=== PATIENT | female | born 1965 | race Caucasian/White ===

== ENCOUNTER 2016-11-17 07:45 | Inpatient (IN) | payer BC ==
[2016-11-05 13:43] VITALS: BMI 25.0
--- NOTE | 2016-11-05 14:29 | PAT Medication Instructions ---
Service Date Nov 05, 2016. Current Home Medication List Ibuprofen Tab (Motrin), 400 MG PO Q4 PRN for Pain Sertraline (Zoloft), 50 MG PO QAM Tramadol (Ultram), 50 MG PO Q8H PRN for Pain Medication Instructions For Your Scheduled Surgery - Hold the following medications 7 days prior to surgery per surgeon's instructions: Ibuprofen Tab (Motrin), 400 MG PO Q4 PRN for Pain - Take the following medications the morning of surgery with a sip of water OTHERWISE NOTHING TO EAT OR DRINK AFTER MIDNIGHT: Tramadol (Ultram), 50 MG PO Q8H PRN for Pain (okay to take if needed up to 4 hours prior to surgery) Sertraline (Zoloft), 50 MG PO QAM - Take the following medications as scheduled the night before surgery: Tramadol (Ultram), 50 MG PO Q8H PRN for Pain Ibuprofen Tab (Motrin), 400 MG PO Q4 PRN for Pain If you have any questions please call us at [phone] (Hannah Bronson PA-C ) or [phone] or [phone]
--- NOTE | 2016-11-05 15:10 | DIAGNOSTIC IMAGING REPORT ---
CHEST 2 VIEWS ROUTINE CLINICAL HISTORY: Preoperative chest COMPARISON STUDY: 04/10/2015 FINDINGS: The cardiac and mediastinal contours are normal. There is no evidence of focal pulmonary consolidation. There is no evidence of failure. No pleural effusions are visualized.[ IMPRESSION: No active disease in the chest. Electronically signed by: Noah King M.D. 11/05/2016 3:08 PM
[2016-11-05 15:17] LABS: BASO % 0.8 %; BASO ABS # 0.05 K/uL (0-0.2); COMPLETE YES; EOS % 4.3 %; HEMATOCRIT 38.3 % (37-47); IG% 0.2 %; LYMPH % 30.9 %; LYMPH ABS # 1.85 K/uL (1.2-3.4); MEAN CELL VOLUME 90.1 fL (80-100); MEAN CORPUSCULAR HEMOGLOBIN 30.6 pg (25-34); MEAN CORPUSCULAR HGB CONC 33.9 g/dl (32-36); MEAN PLATELET VOLUME 10.2 fL (7.4-10.4); NEUT % 57.8 %; PLATELET COUNT 238 K/uL (130-400); RED BLOOD COUNT 4.25 M/uL (4.2-5.4); WHITE BLOOD COUNT 5.99 K/uL (4.8-10.8)
[2016-11-05 15:19] LABS: URINE APPEARANCE CLEAR (CLEAR); URINE BILIRUBIN NEG (NEG); URINE COLOR YELLOW; URINE NITRITE NEG (NEG); URINE SPECIFIC GRAVITY 1.023 (1.000-1.030); UROBILINOGEN NEG (NEG)
[2016-11-05 15:28] LABS: MANUAL MICROSCOPIC REQUIRED? NO; REVIEW REQ? NO
[2016-11-05 16:46] LABS: BUN/CREATININE RATIO 11.8 (10-20); CALCIUM 8.7 mg/dl (8.5-10.1); CREATININE 0.96 mg/dl (0.60-1.20); POTASSIUM 3.6 mmol/L (3.5-5.1)
--- NOTE | 2016-11-13 16:13 | HISTORY & PHYSICAL EXAMINATION ---
DATE OF ADMISSION: 11/17/2016 HISTORY OF PRESENT ILLNESS: The patient presents to our office with a complaint of left greater than right leg pain. It is limiting in nature. She is unable to ambulate a distance because of this. She denies bowel or bladder dysfunction. She has trialed NSAID as well as Medrol Dosepak without any long-lasting relief. PAST MEDICAL HISTORY: Significant for headaches. PAST SURGICAL HISTORY: Significant for hysterectomy. ALLERGIES: None listed. MEDICATIONS: Include Zoloft 50 mg a day and naproxen. SOCIAL HISTORY: She is single. Alcohol is beer occasionally. Tobacco is 8 cigarettes a day x20 years. FAMILY HISTORY: Significant for cancer, arthritis, diabetes, hypertension, high cholesterol, and thyroid disease. 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 REVIEW OF SYSTEMS: Significant for difficulty walking, muscle weakness. PHYSICAL EXAMINATION: VITAL SIGNS: 5 feet 2 inches, 139 pounds. HEENT: Speech appropriate. CARDIOPULMONARY: No gross abnormalities. ABDOMEN: Soft and nondistended. GENITOURINARY: Deferred. NEUROLOGIC: Cranial nerves II-XII grossly intact. MUSCULOSKELETAL: She ambulates with an independent gait. Strength is intact in bilateral lower extremities. Negative tension sign. Negative logrolling. ASSESSMENT: Severe neural foraminal stenosis L5-S1, annular tear L4-L5, spondylolisthesis with pars defect at L5-S1. PLAN: At this point in time, we have discussed surgical intervention which would require lumbar decompression and fusion of L4-L5 and L5-S1. Risks, benefits, pros, cons, and alternatives were outlined in detail. She wishes to proceed with the above-mentioned surgical intervention as soon as possible.
[2016-11-17] VITALS (8 sets, daily range): BP systolic 93–132; BP diastolic 55–75; PULSE 67–108; TEMP 36.4–36.9; O2SAT 91–96; Ht 157.5 cm; Wt 62.6 kg
[~2016-11-17] VITALS: Ht 157.5 cm; Wt 62.6 kg
--- NOTE | 2016-11-17 07:27 | History & Physical Bridge Note ---
H&P Re-Evaluation Bridge Note: I have examined the patient, reviewed the History & Physical and in the interval since the performance of the History & Physical I have noted the following changes of clinical significance: No changes noted
[~2016-11-17 07:45] MED LIST: CEFAZOLIN 1000MG/55 ML D5W IV SCH; IBUP-1449 PO; LACTATED RINGER'S 1000ML 1,000 ML IV SCH; SERT50TA PO; TRAM-10 PO
[2016-11-17] MEDS ORDERED: FENTANYL CITRATE INJ 50 MCG/1 ML 2 ML VIAL ONE ×3 (09:24→11:49)
[2016-11-17] MEDS ORDERED: MIDAZOLAM HCL 1 MG/ML 2ML VIAL ONE (09:25)
[2016-11-17] MEDS ORDERED: BUPIVACAINE/EPINEPHRINE 0.5% MPF 1:200,000 30 ML VIAL INJ ONE (10:42)
[2016-11-17] MEDS ORDERED: HYDROmorphone INJ 2 MG/ML SYR/VIAL ONE (10:49)
[2016-11-17] MEDS ORDERED: GLYCOPYRROLATE INJ 0.2 MG/ML VIAL ONE (11:26)
[2016-11-17] MEDS ORDERED: KETOROLAC TROMETHAMINE 30 MG/ML VIAL ONE (11:26)
[2016-11-17] MEDS ORDERED: NEOSTIGMINE METHYLSULFATE 1 MG/ML 10ML VIAL ONE (11:26)
[2016-11-17] MEDS ORDERED: ONDANSETRON INJ 2 MG/ML 2 ML VIAL ONE (11:26)
[2016-11-17] MEDS ORDERED: LIDOCAINE HCL 2% 2 ML VIAL (20MG/ML) ONE (11:26)
[2016-11-17] MEDS ORDERED: PROPOFOL IV EMULSION 10 MG/ML 20 ML VIAL IV ONE (11:26)
[2016-11-17] MEDS ORDERED: ROCURONIUM BROMIDE 10 MG/ML 5 ML VIAL ONE (11:26)
[2016-11-17] MEDS ORDERED: DEXAMETHASONE SOD INJ 4 MG/ML VIAL ONE (11:26)
[2016-11-17] MEDS ORDERED: BACITRACIN 50000 UNIT VIAL IR ONE (11:38)
[2016-11-17] MEDS ORDERED: FLOSEAL HEMOSTATIC MATRIX 10ML TOP ONE (11:38)
[2016-11-17] MEDS ORDERED: EpHEDrine SULFATE 50MG/5ML SYR ONE (11:38)
[2016-11-17] MEDS ORDERED: SODIUM CHLORIDE 0.9% 1000ML 1,000 ML IV SCH (11:40)
--- NOTE | 2016-11-17 11:40 | [facility] Post Operative Brief Note ---
Immediate Operative Summary Operative Date Nov 17, 2016. Pre-Operative Diagnosis Severe neural formainal stenosis L5-S1, annular tear L4-L5, spondylolisthesis with pars defect at L5-S1. Post-Operative Diagnosis Severe neural formainal stenosis L5-S1, annular tear L4-L5, spondylolisthesis with pars defect at L5-S1. Procedure(s) Performed L4-S1 Decompression; Posterior Spinal Fusion; Instrumentation; Interbody Fusion with Application of Interbody Cage L5-S1; and Bone Morphogenetic Protein; [place] Surgeon Dr. Jordin Roach Felling Bucking Supervisor Surgeon(s) Brittany Peterson PA-C Estimated Blood Loss 200 ML Findings stenosis/spondy Specimens None per surgeon
[2016-11-17] MEDS ORDERED: FAMOTIDINE 20 MG TAB PO PRN (11:45)
[2016-11-17] MEDS ORDERED: DO NOT ADMINISTER FLU VACCINE PRN ×3 (11:45)
[2016-11-17] MEDS ORDERED: TRAMADOL HCL 50 MG TAB PO PRN (11:45)
[2016-11-17] MEDS ORDERED: LORAZEPAM INJ 0.5 MG in SYRINGE 0.75 ML IV PRN (11:45)
[2016-11-17] MEDS ORDERED: SOD PHOSPHATE/SOD BIPHOSPHATE ENEMA 132 ML BTL PR PRN (11:45)
[2016-11-17] MEDS ORDERED: LORAZEPAM 0.5 MG TAB PO PRN (11:45)
[2016-11-17] MEDS ORDERED: PROMETHAZINE HCL INJ 12.5 MG in SODIUM CHLORIDE 0.9% 50ML 50 ML IV PRN (11:45)
[2016-11-17] MEDS ORDERED: ACETAMINOPHEN IV 100 ML IV PRN (11:45)
[2016-11-17] MEDS ORDERED: DO NOT ADMINISTER PNEUMOCOCCAL VACCINE PRN ×2 (11:45)
[2016-11-17] MEDS ORDERED: NALOXONE HCL 0.4 MG/1 ML VIAL/CARP IV PRN ×2 (11:45)
[2016-11-17] MEDS ORDERED: METOCLOPRAMIDE HCL INJ 5 MG/ML 2 ML VIAL IV PRN (11:45)
[2016-11-17] MEDS ORDERED: MAGNESIUM HYDROXIDE SUSP 30 ML UDC PO PRN (11:45)
[2016-11-17] MEDS ORDERED: ONDANSETRON INJ 2 MG/ML 2 ML VIAL IV PRN ×2 (11:45→14:45)
[2016-11-17] MEDS ORDERED: ALUMINUM/MAGNESIUM SUSP 30 ML UDC PO PRN (11:45)
[2016-11-17] MEDS ORDERED: BISACODYL 10 MG SUPP PR PRN (11:45)
[2016-11-17] MEDS ORDERED: hydrOXYzine HCL 25 MG TAB PO PRN (11:45)
[2016-11-17] MEDS ORDERED: ESMOLOL HCL 10 MG/ML 10 ML VIAL ONE (11:46)
--- NOTE | 2016-11-17 11:52 | DIAGNOSTIC IMAGING REPORT ---
INTRAOPERATIVE FLUOROSCOPIC IMAGES OF THE LUMBAR SPINE CLINICAL HISTORY: L4-S1 DECOMPRESSION COMPARISON STUDY: Lumbar spine MRI August 27, 2016. Fluoroscopy time: 27 seconds. FINDINGS: These 2 fluoroscopic images demonstrate mild anterolisthesis of L5 on S1. There is a discectomy at the L5-S1 level with interbody spacer placement. A posterior decompression is noted. There are pedicle screws at the L4, L5 and S1 levels. There are interconnecting rods. IMPRESSION: Fluoroscopic images demonstrating an L5-S1 discectomy and L4-S1 bilateral pedicle screw fusion. Electronically signed by: Dominic Cat M.D. 11/17/2016 11:50 AM Dictated Date/Time: 11/17/2016 11:49 AM
[2016-11-17] MEDS: HYDROmorphone HCL 0.5MG/ML 50 ML CASSETTE IV PRN ×3 (12:18→23:16)
--- NOTE | 2016-11-17 12:31 | OPERATIVE REPORT ---
DATE OF OPERATION: 11/17/2016 PREOPERATIVE DIAGNOSES: Spinal stenosis, spondylolisthesis. POSTOPERATIVE DIAGNOSIS: Same. PROCEDURE PERFORMED: 1. Lumbar decompression, medial facetectomy and foraminotomy L4-5, L5-S1. 2. Posterior spinal fusion L4-5, L5-S1. 3. Placement posterior segmental instrumentation using Medicrea rods and screws L4-5, L5-S1. 4. Interbody fusion L5-S1. 5. Placement of PEEK cage 12 x 22 mm at L5-S1. 6. Placement of locally harvested morselized autograft posterior gutters. 7. Placement of Infuse collagen sponge combined with Mastergraft in the posterior lateral gutters and Amena bone grafting in the interbody space. SURGEON: Dr. Jordin Roach. ERECTION SHOP SUPERVISOR: JUAN Thorpe. ANESTHESIA: General. DISPOSITION: The patient awakened and taken to PACU in stable condition. HISTORY OF PATIENT'S PROBLEMS: This is a 51-year-old female that presents with above-mentioned diagnosis. After failing an extensive course of nonoperative care, elected to undergo the above-mentioned procedure. Risks, benefits, pros, cons, and alternatives were outlined in detail preoperatively. PROCEDURE: The patient was met with preoperatively. The case was discussed and all questions were addressed. At that point the patient was taken back to operative suite and after undergoing successful general intubation by the department of anesthesia was placed in prone position on Michael table atop Tyrone frame. All bony prominences were well padded and the eyes were inspected to ensure there was no external pressure placed upon them. At this point, the lumbar spine was prepped and draped in a normal sterile fashion. Sharp dissection with the assistance of Bovie cautery was performed down to and exposing the lamina and transverse processes of L4-5 and the sacral ala bilaterally. Obvious pars defect was appreciated. From a caudal to cephalad fashion, a complete laminectomy of L5, partial laminectomy of L2 was performed addressing severe lateral recess and foraminal disease. Pedicle screws were then placed in 4-5 and S1 levels bilaterally with assistance of fluoroscopy and through a transforaminal approach on the left, a complete discectomy of L5-S1 was performed. Endplates curetted to subcortical bleeding bone and a 12 x 22 mm PEEK cage filled with Amena bone grafting tapped into position. Appropriate size rods were then placed, locked into final position bilaterally and through transverse processes of 4, 5 and sacral ala burred to subcortical bone. Infuse collagen sponge combined with Mastergraft and locally harvested morselized autograft was placed in the posterior gutters. A 7 flat DANIELLE drain was inserted. Incision was closed with 1-0 Vicryl in the fascia, 2-0 Vicryl subcutaneously, 4-0 Monocryl for final skin closure. Steri-Strips and sterile dressing placed. The patient was awakened and taken to PACU in stable condition. Due to the complex nature of the procedure, the entire surgery was performed with the operational assistance of JUAN Thorpe. The acute care certified nursing assistant, under direct supervision, was involved in the actual performance of all aspects of the surgical procedure including hemostasis, tissue retraction and incision, instrument management, patient positioning, and wound closure. I attest to the content of the Intraoperative Record and any orders documented therein. Any exceptio ns are noted below.
[2016-11-17] MEDS: LACTATED RINGER'S 1000ML 1,000 ML IV SCH ×2 (13:42→21:15)
--- NOTE | 2016-11-17 14:39 | Anesthesiology Progress Note ---
Anesthesia Post Op Note Date & Time Nov 17, 2016 at 14:38 Vital Signs Pain Intensity: 8.0 Vital Signs Past 12 Hours Date Time Temp Pulse Resp B/P Pulse Ox O2 Delivery O2 Flow Rate FiO2 11/17/16 14:27 83 16 95/61 92 Nasal Cannula 4.0 11/17/16 13:59 77 14 102/67 91 Nasal Cannula 4.0 11/17/16 13:30 36.7 108 16 104/68 92 Nasal Cannula 4.0 11/17/16 13:00 36.7 107 16 132/75 92 Nasal Cannula 4.0 11/17/16 13:00 Nasal Cannula 4.0 11/17/16 13:00 Nasal Cannula 4.0 11/17/16 12:54 116 20 106/53 95 Nasal Cannula 2 11/17/16 12:45 36.9 103 20 102/68 94 Nasal Cannula 2 11/17/16 12:35 105 18 123/72 95 Nasal Cannula 2 11/17/16 12:25 118 18 115/69 95 Mask 10 11/17/16 12:15 115 18 113/57 94 Mask 10 11/17/16 12:05 86 14 106/70 89 Mask 10 11/17/16 12:04 36.7 86 14 119/77 70 Mask 10 11/17/16 08:05 36.6 67 18 101/75 94 Room Air Notes Mental Status: alert / awake / arousable, participated in evaluation Pt Amnestic to Procedure: Yes Nausea / Vomiting: adequately controlled Pain: adequately controlled Airway Patency, RR, SpO2: stable & adequate BP & HR: stable & adequate Hydration State: stable & adequate Anesthetic Complications: no major complications apparent
[2016-11-17] MEDS ORDERED: MEPERIDINE HCL 25 MG/ML CARP IV PRN (14:45)
[2016-11-17] MEDS ORDERED: FENTANYL CITRATE INJ 50 MCG/1 ML 2 ML VIAL IV PRN (14:45)
[2016-11-17] MEDS ORDERED: HYDROmorphone INJ 1 MG/ML SYR IV PRN (14:45)
[2016-11-17] MEDS ORDERED: EpHEDrine SULFATE INJ 50 MG/ML AMP IV PRN (14:45)
[2016-11-17] MEDS ORDERED: ATROPINE SULFATE 0.1 MG/ML 5ML SYR IV PRN (14:45)
[2016-11-17] MEDS ORDERED: LABETALOL HCL IV 5 MG/ML 20ML IV PRN (14:45)
[2016-11-17] MEDS: CLINDAMYCIN IV 600 MG in DEXTROSE 5% ADD-VANTAGE 50ML 50 ML IV SCH (18:22)
[2016-11-17] MEDS: DEXAMETHASONE INJ 6 MG in SYRINGE 0 ML IV SCH (18:25)
[2016-11-17] MEDS: DOCUSATE SODIUM/SENNA 50/8.6MG TAB PO SCH (21:12)
[2016-11-18] MEDS: DEXAMETHASONE INJ 6 MG in SYRINGE 0 ML IV SCH ×2 (01:38→10:00)
[2016-11-18] MEDS: CLINDAMYCIN IV 600 MG in DEXTROSE 5% ADD-VANTAGE 50ML 50 ML IV SCH (01:39)
[2016-11-18] MEDS ORDERED: NURSING VERBAL MED ORDER ONE (02:15)
[2016-11-18 03:08] VITALS: BP 92/54; PULSE 72; TEMP 36.9; O2SAT 98
[2016-11-18] MEDS ORDERED: DC PCA ONE (06:00)
[2016-11-18] MEDS ORDERED: HYDROmorphone INJ 1 MG/ML SYR IV PRN (07:01)
[2016-11-18] MEDS ORDERED: HYDROmorphone INJ 0.5 MG/0.5 ML SYR IV PRN (07:01)
[2016-11-18 07:12] LABS: COMPLETE YES; HEMATOCRIT 32.9 % (37-47); IG% 0.2 %; LYMPH % 4.5 %; LYMPH ABS # 0.49 K/uL (1.2-3.4); MEAN CELL VOLUME 91.1 fL (80-100); MEAN CORPUSCULAR HEMOGLOBIN 30.2 pg (25-34); MEAN CORPUSCULAR HGB CONC 33.1 g/dl (32-36); MEAN PLATELET VOLUME 10.6 fL (7.4-10.4); MONO % 2.2 %; NEUT % 93.1 %; PLATELET COUNT 241 K/uL (130-400); RED BLOOD COUNT 3.61 M/uL (4.2-5.4); WHITE BLOOD COUNT 10.84 K/uL (4.8-10.8)
[2016-11-18 07:31] VITALS: BP 94/53; PULSE 75; TEMP 37; O2SAT 90
[2016-11-18 07:38] LABS: BUN/CREATININE RATIO 10.8 (10-20); CALCIUM 8.3 mg/dl (8.5-10.1); CREATININE 0.86 mg/dl (0.60-1.20); POTASSIUM 3.8 mmol/L (3.5-5.1)
--- NOTE | 2016-11-18 08:00 | Anesthesiology Progress Note ---
Anesthesia Post Op Note Date & Time Nov 18, 2016 at 07:59 Vital Signs Pain Intensity: 0.0 Vital Signs Past 12 Hours Date Time Temp Pulse Resp B/P Pulse Ox O2 Delivery O2 Flow Rate FiO2 11/18/16 07:31 37.0 75 17 94/53 90 Room Air 11/18/16 07:24 Room Air 11/18/16 05:51 Room Air 11/18/16 03:08 36.9 72 18 92/54 98 Nasal Cannula 2.0 11/17/16 23:25 Nasal Cannula 1.0 11/17/16 23:17 36.9 70 15 93/55 96 Nasal Cannula 2.0 Notes Mental Status: alert / awake / arousable, participated in evaluation Pt Amnestic to Procedure: Yes Nausea / Vomiting: adequately controlled Pain: adequately controlled Airway Patency, RR, SpO2: stable & adequate BP & HR: stable & adequate Hydration State: stable & adequate Anesthetic Complications: no major complications apparent
--- NOTE | 2016-11-18 08:39 | PROGRESS NOTE ---
DATE: 11/18/2016 DATE: 11/18/2016 Postop day 1. Back pain controlled. Leg pain improved. Vital signs stable. T-max 37.0. DANIELLE drained 60 mL. Hematocrit this a.m. is 32.9. On exam, patient is comfortable, has good strength to testing. ASSESSMENT: Status post lumbar decompression and fusion. PLAN: At this time, initiate physical therapy, advance bowel regimen, and anticipate discharge home Thursday.
[2016-11-18] MEDS: SERTRALINE HCL 50 MG TAB PO SCH (08:44)
[2016-11-18] MEDS: OXYCODONE HCL IR 5 MG TAB (IMMEDIATE RELEASE) PO PRN ×3 (08:44→17:50)
[2016-11-18 10:51] VITALS: BP 95/58; PULSE 71; TEMP 36.9; O2SAT 98
[2016-11-18 15:17] VITALS: BP 99/62; PULSE 78; TEMP 37.9; O2SAT 93
[2016-11-18 15:56] VITALS: TEMP 36.6
[2016-11-18] MEDS: ACETAMINOPHEN 500 MG TAB PO PRN (19:18)
[2016-11-18] MEDS: DOCUSATE SODIUM/SENNA 50/8.6MG TAB PO SCH (20:44)
[2016-11-18 22:50] VITALS: BP 97/59; PULSE 78; TEMP 36.9; O2SAT 92
[2016-11-19] MEDS: OXYCODONE HCL IR 5 MG TAB (IMMEDIATE RELEASE) PO PRN ×5 (00:59→20:40)
[2016-11-19 05:59] VITALS: BP 107/72; PULSE 83; TEMP 36.8; O2SAT 94
[2016-11-19] MEDS: POLYETHYLENE (MIRALAX) 17 GM PACK PO SCH ×4 (05:59→23:28)
[2016-11-19] MEDS: SERTRALINE HCL 50 MG TAB PO SCH (07:31)
[2016-11-19] MEDS ORDERED: RXC5 PO (07:43)
--- NOTE | 2016-11-19 07:44 | Discharge Instructions ---
Discharge Instructions Admission Reason for Admission: Spinal Stenosis Discharge Discharge Diagnosis / Problem: stenosis Discharge Goals Goal(s): Improve function Activity Recommendations Activity Limitations: per Instructions/Follow-up section . Instructions / Follow-Up Instructions / Follow-Up ACTIVITY RECOMMENDATIONS: SELF CARE INSTRUCTIONS AFTER THORACIC/LUMBAR FUSIONS 1. You may walk to your tolerance. It is good exercise for your legs and back. Expect some back and intermittent leg aches and pains. 2. You may perform "counter-top" level activities (make a sandwich, lee with a project, etc.). 3. No bending or lifting of more than 10 pounds or back twisting of any nature (roll like a log when turning in bed). 4. You may ride in a car for 20-30 minutes at a time. No driving until after your first visit with your doctor. 5. Frequent changes of position and restricting sitting to 30 minutes at a time will help limit the amount of back spasms and stiffness you may experience. 6. You may discontinue the use of ambulatory aids (cane, crutches, etc.) once your strength and confidence allow. 7. You may assistant prosecuting attorney the shower and let water strike your incision when you arrive home at least once daily. Do not take a tub bath, sit in a hot tub or go into a swimming pool until after your first recheck in the office. SPECIAL CARE INSTRUCTIONS: VERY IMPORTANT TO READ AND REVIEW A. Your surgical incision has been closed with a cosmetic suture under the skin that will dissolve in about 6 weeks. In 14 days, you can use a pair of clean scissors and cut the suture that is left outside of the skin at the ends of your incision. 1. The small skin tapes can be removed 7 days after surgery if they have not fallen off by that point. 2. You may keep the wound open to air as much as possible to promote healing after post-op day number 5 unless told otherwise by your doctor. 3. If you think the wound looks like it is becoming infected (redness or worsening drainage) and/or you are experiencing fever, chill or worsening back pain and muscle spasms, contact the office so that we may evaluate you as soon as possible. B. Complications are uncommon, but please contact us if you have any signs or symptoms of: 1. wound infection (fever higher than 102.5 degrees F, redness, separation of wound, drainage, or increasing pain from the incision) 2. blood clots in legs (pain, swelling, redness and warmth in legs) 3. urinary tract infection (fever higher than 102.5 degrees F, burning upon urination or increased frequency of urination) 4. nerve problems (inability to walk on your toes or heels, numbness, loss of bowel or bladder control) 5. any other symptoms that concern you C. Please call the office at if you have any concerns or questions about your operation or recovery. D. No smoking! Smoking drastically decreases the chance of a solid fusion. E. Do not take any anti-inflammatory medications (Indocin, Advil, Motrin, Aspirin, Naprosyn, etc.) as these may inhibit the chance of a solid fusion. Tylenol is okay to take for pain. MANAGING PAIN AFTER SPINAL SURGERY 1. Narcotic medication is intended for short-term use and will be provided for surgical pain. Surgical pain usually lasts for a period of 4-6 weeks. Narcotic medication includes Percocet, Vicodin, Darvocet, Tylenol #3 or Lortab. 2. Longer-term pain is more appropriately treated with non-narcotic medication such as Tylenol ES. 3. Muscle spasm is not appropriately treated with narcotics. Muscle relaxers such as Soma, Flexeril or Skelaxin can be used along with Tylenol ES. 4. Remember that we all live with some "aches and pains". This is not unusual or uncommon after an injury or as we get older. a. Back pain is expected and may include muscle spasms for 4 to 6 weeks after surgery. The pain should gradually improve. If the pain worsens for no apparent reason, please contact the office. b. Intermittent leg pain may also be experienced and should not be concerned about unless it worsens for no apparent reason. If so, please contact the office. 5. We will provide appropriate medication within the normal guidelines of their prescribed use. We will also be very cautious and aware of potential abuse and extended duration of patients' medication needs. a. Pain medications are for your comfort and to assist with sleep and rest so that the tissue can heal. They are not provided in order to return to normal activity and should not be used through the day. To do so or worsening pain at night can result from ongoing tissue damage and development of tolerance to the prescribed medicine. 6. Please allow 2-3 days to process refills. Prescriptions will not be mailed but must be picked up at the office. FOLLOW UP VISIT: Keep your scheduled follow-up appointment. Any questions, please call the office at . Current Hospital Diet Patient's current hospital diet: Regular Diet Discharge Diet Recommended Diet: Regular Diet Procedures Procedures Performed: L4-S1 Decompression; Posterior Spinal Fusion; Instrumentation; Interbody Fusion with Application of Interbody Cage L5-S1; and Bone Morphogenetic Protein; Amena Pending Studies Studies pending at discharge: no Medical Emergencies . Who to Call and When: Medical Emergencies: If at any time you feel your situation is an emergency, please call 911 immediately. . Non-Emergent Contact Non-Emergency issues call your: Primary Care Provider . "Provider Documentation" section prepared by Jordin Roach. VTE Core Measure Inpt VTE Proph given/why not?: Luis Alberto Breaux, SCD's
[2016-11-19 08:03] VITALS: BP 115/60; PULSE 75; TEMP 37; O2SAT 95
[2016-11-19 09:17] VITALS: O2SAT 95
--- NOTE | 2016-11-19 14:58 | OPERATIVE REPORT ---
DATE OF OPERATION: 11/19/2016 HISTORY OF PRESENT ILLNESS: Postop day 2. Back pain is controlled. Leg pain improved. Vital signs stable. T-max 37.0. DANIELLE drained 60 mL today. PHYSICAL EXAMINATION: On exam, patient is in chair at bedside. Demonstrates good strength to testing, appears comfortable. ASSESSMENT: Status post lumbar decompression and fusion. PLAN: At this time, we will maintain the DANIELLE drain another 24 hours as output is still significant. I anticipate being able to discontinue the drain tomorrow and discharge home with home health. She understands and agrees. I attest to the content of the Intraoperative Record and any orders documented therein. Any exceptio ns are noted below.
[2016-11-19 15:13] VITALS: BP 86/51; PULSE 73; TEMP 36.9; O2SAT 94
[2016-11-19 15:36] VITALS: BP 115/75
[2016-11-19] MEDS: DOCUSATE SODIUM/SENNA 50/8.6MG TAB PO SCH (20:39)
[2016-11-19 22:52] VITALS: BP 95/59; PULSE 78; TEMP 37.5; O2SAT 94
[2016-11-19] MEDS: ACETAMINOPHEN 500 MG TAB PO PRN (23:27)
[2016-11-20] MEDS: OXYCODONE HCL IR 5 MG TAB (IMMEDIATE RELEASE) PO PRN ×4 (04:29→16:56)
[2016-11-20] MEDS: POLYETHYLENE (MIRALAX) 17 GM PACK PO SCH ×2 (05:52→11:31)
[2016-11-20 07:43] VITALS: BP 96/60; PULSE 74; TEMP 36.4; O2SAT 94
--- NOTE | 2016-11-20 08:26 | DISCHARGE SUMMARY ---
PRINCIPAL DIAGNOSIS: Spinal stenosis. HOSPITAL COURSE FOLLOWS: On 11/17/2016 the patient underwent multilevel lumbar decompression and fusion, tolerated this well and taken to the orthopedic floor postoperatively. Postop day #1 she was up and ambulatory. Leg pain improved. DANIELLE drain still significant. Postop day #2. DANIELLE drain still significant elected to keep her 1 more day. On postop day 3, she was discharged home. Discharge orders and instructions found on the chart for further review.
[2016-11-20] MEDS: SERTRALINE HCL 50 MG TAB PO SCH (08:42)
[2016-11-20 14:07] VITALS: BP 96/60; PULSE 74; TEMP 36.4; O2SAT 94
[2016-11-20] MEDS: ACETAMINOPHEN 500 MG TAB PO PRN (14:23)
== END 2016-11-20 17:30 | disposition home health service (06) | DRG 460 ==
LOC: ENRESERVTM → ENRESERVDT → C.ACU 07:45 → C.3E 09:03
PROVIDERS: ADMIT Orthopaedic Surgery Orthopaedic Surgery of the Spine; ATTEND Orthopaedic Surgery Orthopaedic Surgery of the Spine
PROC: 0SG0071 Fusion of Lumbar Vertebral Joint with Autologous Tissue Substitute, Posterior Approach, Posterior Column, Open Approach (ICD-10-PCS; principal; 2016-11-17 10:00)
PROC: 0SG3071 Fusion of Lumbosacral Joint with Autologous Tissue Substitute, Posterior Approach, Posterior Column, Open Approach (ICD-10-PCS; principal; 2016-11-17 10:00)
PROC: 0SG30AJ Fusion of Lumbosacral Joint with Interbody Fusion Device, Posterior Approach, Anterior Column, Open Approach (ICD-10-PCS; principal; 2016-11-17 10:00)
PROC: 3E0U0GB Introduction of Recombinant Bone Morphogenetic Protein into Joints, Open Approach (ICD-10-PCS; principal; 2016-11-17 10:00)
PROC: 0ST40ZZ Resection of Lumbosacral Disc, Open Approach (ICD-10-PCS; principal; 2016-11-17 10:00)
DX: M48.07 Spinal stenosis, lumbosacral region (principal); M43.17 Spondylolisthesis, lumbosacral region; M51.37 Other intervertebral disc degeneration, lumbosacral region; J45.909 Unspecified asthma, uncomplicated; F41.9 Anxiety disorder, unspecified; F32.9 Major depressive disorder, single episode, unspecified; F17.210 Nicotine dependence, cigarettes, uncomplicated; Z79.891 Long term (current) use of opiate analgesic; Z79.899 Other long term (current) drug therapy